=== PATIENT | female | born 1955 | race Caucasian/White ===

== ENCOUNTER 2023-02-13 00:11 | Emergency (ER) | payer MEDICARE, SELFPAY ==
[2023-02-13] VITALS (26 sets, daily range): BP systolic 128–165; BP diastolic 69–112; PULSE 76–94; RESP 9–37; TEMP 36.7; O2SAT 89–93; BMI 47.0
--- NOTE | 2023-02-13 00:38 | XR_ITS ---
The [address] [address] Patient Name: ALICIA GONZALEZ MRN: [id number] date: 1955 Sex: F Assigned Patient Location: ER Current Patient Location: ER Accession/Order Number: [id number] Exam Date: 02/13/2023 00:45 Report Date: 02/13/2023 01:18 At the request of: GURWINDER MARTINEZ Procedure: XR chest 1V EXAMINATION:XR chest 1V INDICATION:chest pain COMPARISON:11/29/2021 TECHNIQUE:A single frontal view of the chest is submitted. FINDINGS: The cardiomediastinal silhouette is mildly enlarged but stable. The pulmonary vascularity is within normal limits. The lungs are clear based on chest radiography. There is no costophrenic angle blunting. XR/XR chest 1V IMPRESSION: Stable cardiac enlargement. Otherwise unremarkable plain film examination of the chest. Electronically authenticated by: ALIX VILLEGAS Date: 02/13/2023 01:18
--- NOTE | 2023-02-13 00:38 | ECG_ITS ---
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
--- NOTE | 2023-02-13 00:39 | ED.CHESTPAI1 ---
HPI - Chest Pain General Chief Complaint: Chest Pain Stated Complaint: CHEST PAIN Time Seen by Provider: 02/13/23 00:34 Source: patient Mode of arrival: Wheelchair Limitations: no limitations History of Present Illness HPI narrative: presents complaining of chest pain. States it started around 5pm and gradually increased. Pain is substernal. No nausea or abdominal pain. States she had a heart cath earlier this year that was normal MD complaint: Reports chest pain Related Data Home Medications Medication Instructions Recorded Confirmed aspirin 81 mg chewable tablet 1 tab PO DAILY 02/13/23 02/13/23 atorvastatin 40 mg tablet 40 mg PO DAILY 02/13/23 02/13/23 carvedilol 6.25 mg tablet 6.25 mg PO Q12H 02/13/23 02/13/23 furosemide 20 mg tablet 20 mg PO DAILY 02/13/23 02/13/23 hydrocodone 5 mg-acetaminophen 325 1 tab PO Q8H 02/13/23 02/13/23 mg tablet lisinopril 5 mg tablet 5 mg PO DAILY 02/13/23 02/13/23 spironolactone 25 mg tablet 25 mg PO DAILY 02/13/23 02/13/23 Allergies Allergy/AdvReac Type Severity Reaction Status Date / Time No Known Drug Allergies Allergy Verified 02/13/23 00:28 Review of Systems ROS Status of ROS 10 or more systems reviewed and unremarkable except as noted in history and below [facility] Social History Smoking status: Never smoker Exam Constitutional Vital Signs, click to edit/add: Last Vital Signs Temp 98.0 F 02/13/23 00:21 Pulse 88 02/13/23 00:21 Resp 16 02/13/23 00:21 BP 158/99 H 02/13/23 00:21 Pulse Ox 93 L 02/13/23 00:21 O2 Del Method Room Air 02/13/23 00:21 Common normals: no apparent distress, oriented x3, no limitations, healthy appearing and well nourished Eye Common normals: EOMs intact bilaterally and conjunctivae normal Chest Common normals: inspection of chest normal and palpation of chest normal Respiratory Common normals: normal respiratory effort, no retractions, no use of accessory muscles and clear to auscultation bilaterally Cardio Common normals: regular rate, regular rhythm, S1 normal heart sound and S2 normal heart sound GI Common normals: Normal to inspection, nondistended, normoactive bowel sounds present, soft to palpation and non-tender Extremity Common normals: normal to inspection and full ROM Neuro Common normals: oriented x3, CN's II-XII intact bilaterally, moves all extremities, no focal motor deficits and no sensory deficits noted Psych Appearance: grossly normal Course Vital Signs Vital signs: Vital Signs Temperature 98.0 F 02/13/23 00:21 Pulse Rate 88 02/13/23 00:21 Respiratory Rate 16 02/13/23 00:21 Blood Pressure 158/99 H 02/13/23 00:21 Pulse Oximetry 93 L 02/13/23 00:21 Oxygen Delivery Method Room Air 02/13/23 00:21 Temperature 98.0 F 02/13/23 00:21 Pulse Rate 88 02/13/23 00:21 Respiratory Rate 16 02/13/23 00:21 Blood Pressure 158/99 H 02/13/23 00:21 Pulse Oximetry 93 L 02/13/23 00:21 Oxygen Delivery Method Room Air 02/13/23 00:21 MDM - Chest Pain MDM Narrative Medical decision making narrative: presents complaining of chest pain. No associated symptoms. Did not want anything for the pain and it resolved spontaneously. Did have a normal heart cath earlier this year. EKG neg. Serial troponins neg. 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 Lab Data Labs: Lab Results 02/13/23 02/13/23 Range/Units 00:30 03:19 WBC 11.9 H (4.0-11.0) 10^3/uL RBC 4.26 (4.20-5.40) 10^6/uL Hgb 12.6 (12.0-16.0) g/dL Hct 41.6 (36.0-48.0) % MCV 97.7 (81.0-99.0) fL MCH 29.6 (26.7-34.0) pg MCHC 30.3 (29.9-35.2) g/dL RDW 12.6 (11.0-15.0) % Plt Count 323 (150-450) 10^3/uL MPV 10.5 (9.5-13.5) fL Neut % (Auto) 73.5 (43.0-75.0) % Lymph % (Auto) 16.1 L (20.5-60.0) % [place] % (Auto) 6.9 (1.7-12.0) % Eos % (Auto) 2.4 (0.9-7.0) % Baso % (Auto) 0.8 (0.2-2.0) % Neut # (Auto) 8.7 H (1.4-6.5) 10^3/uL Lymph # (Auto) 1.9 (1.2-3.8) 10^3/uL [place] # (Auto) 0.8 (0.3-0.8) 10^3/uL Eos # (Auto) 0.3 (0.0-0.7) 10^3/uL Baso # (Auto) 0.1 (0.0-0.1) 10^3/uL Abs Immat Gran (auto) 0.04 H (0.00-0.03) 10^3/uL Imm/Tot Granulo (auto) 0.3 (0.0-0.5) % D-Dimer 0.33 (<=0.59) mg/L FEU Sodium 140 (136-145) mmol/L Potassium 3.9 (3.5-5.1) mmol/L Chloride 102 (98-107) mmol/L Carbon Dioxide 31.1 (21.0-32.0) mmol/L Anion Gap 10.8 BUN 16.0 (7.0-18.0) mg/dL Creatinine 1.18 H (0.55-1.02) mg/dL Est GFR ( Amer) 55 L (>=60) Est GFR (Non-Af Amer) 45 L (>=60) BUN/Creatinine Ratio 13.6 Glucose 119 H (74-106) mg/dL Calcium 9.1 (8.5-10.1) mg/dL Total Bilirubin 0.6 (0.2-1.0) mg/dL Direct Bilirubin 0.1 (0.0-0.2) mg/dL AST 16 (15-37) U/L ALT 17 (14-59) U/L Alkaline Phosphatase 112 (46-116) U/L Troponin I High Sens 7.2 8.5 (4.0-51.3) pg/mL Total Protein 7.8 (6.4-8.2) g/dL Albumin 3.1 L (3.4-5.0) g/dL Globulin 4.7 g/dL Albumin/Globulin Ratio 0.7 Lipase 18.0 (16.0-77.0) U/L Discharge Plan Discharge Chief Complaint: Chest Pain Clinical Impression: Atypical chest pain Patient Disposition: Home, Self-Care Condition: Good Mode of Transportation: Private Vehicle Prescriptions / Home Meds: No Action atorvastatin 40 mg tablet 40 mg PO DAILY carvedilol 6.25 mg tablet 6.25 mg PO Q12H spironolactone 25 mg tablet 25 mg PO DAILY aspirin 81 mg tablet,chewable 1 tab PO DAILY lisinopril 5 mg tablet 5 mg PO DAILY furosemide 20 mg tablet 20 mg PO DAILY hydrocodone-acetaminophen 5-325 mg tablet 1 tab PO Q8H Instructions: Chest Pain (ED) Additional Instructions: Follow up with cardiology on Tuesday. Return to the ED is symptoms change or worsen. Stand Alone Forms: Portal Instructions Referrals: Fco Kulkarni MD [Primary Care Provider] - 1 week
[2023-02-13 00:54] LABS: Basophils Absolute Auto 0.1 10^3/uL (0.0-0.1); Basophils Percent Auto 0.8 % (0.2-2.0); Eosinophils Absolute Auto 0.3 10^3/uL (0.0-0.7); Eosinophils Percent Auto 2.4 % (0.9-7.0); Hematocrit 41.6 % (36.0-48.0); Hemoglobin 12.6 g/dL (12.0-16.0); Immature Granulocytes Abs Auto 0.04 10^3/uL (0.00-0.03); Immature Granulocytes Pct Auto 0.3 % (0.0-0.5); Lymphocytes Absolute Auto 1.9 10^3/uL (1.2-3.8); Lymphocytes Percent Auto 16.1 % (20.5-60.0); Mean Corpuscular HGB Conc 30.3 g/dL (29.9-35.2); Mean Corpuscular Hemoglobin 29.6 pg (26.7-34.0); Mean Corpuscular Volume 97.7 fL (81.0-99.0); Mean Platelet Volume 10.5 fL (9.5-13.5); Monocytes Absolute Auto 0.8 10^3/uL (0.3-0.8); Monocytes Percent Auto 6.9 % (1.7-12.0); Neutrophils Absolute Auto 8.7 10^3/uL (1.4-6.5); Neutrophils Percent Auto 73.5 % (43.0-75.0); Platelet Count 323 10^3/uL (150-450); Red Blood Count 4.26 10^6/uL (4.20-5.40); Red Cell Distribution Width 12.6 % (11.0-15.0); White Blood Count 11.9 10^3/uL (4.0-11.0)
[2023-02-13 01:13] LABS: Anion Gap 10.8; BUN Creatinine Ratio 13.6; Calcium 9.1 mg/dL (8.5-10.1); Carbon Dioxide 31.1 mmol/L (21.0-32.0); Chloride 102 mmol/L (98-107); Estimated GFR (African America 55 (>=60); Estimated GFR (Non-African Ame 45 (>=60); Glucose 119 mg/dL (74-106); Potassium 3.9 mmol/L (3.5-5.1); Sodium 140 mmol/L (136-145)
[2023-02-13 01:16] LABS: Troponin I High Sensitivity 7.2 pg/mL (4.0-51.3)
[2023-02-13 01:20] LABS: Alanine Aminotransferase 17 U/L (14-59); Albumin Globulin Ratio 0.7; Albumin Level 3.1 g/dL (3.4-5.0); Alkaline Phosphatase 112 U/L (46-116); Aspartate Amino Transferase 16 U/L (15-37); Bilirubin Direct 0.1 mg/dL (0.0-0.2); Bilirubin Total 0.6 mg/dL (0.2-1.0); Globulin 4.7 g/dL; Total Protein 7.8 g/dL (6.4-8.2)
[2023-02-13 01:22] LABS: D Dimer 0.33 mg/L FEU (<=0.59)
[2023-02-13 03:43] LABS: Troponin I High Sensitivity 8.5 pg/mL (4.0-51.3)
== END 2023-02-13 04:06 | disposition home or self-care (01) ==
PROVIDERS: Emergency Provider Internal Medicine; PCP Family Medicine
DX: R07.89 Other chest pain (principal); Z79.82 Long term (current) use of aspirin; Z79.899 Other long term (current) drug therapy
CPT/HCPCS: 36415; 71045; 80048; 80076; 83690; 84484; 85025; 85378; 93005; 99285

== ENCOUNTER 2024-03-15 13:01 | Outpatient (OUT) | payer MEDICARE, SELFPAY ==
--- NOTE | 2024-03-15 13:20 | XR_ITS ---
The [address] [address] Patient Name: ALICIA GONZALEZ MRN: [id number] date: 1955 Sex: F Assigned Patient Location: [facility] Current Patient Location: [facility] Accession/Order Number: [id number] Exam Date: 03/15/2024 13:25 Report Date: 03/15/2024 13:49 At the request of: ALIX DE ANDA Procedure: XR chest 2V EXAMINATION: XR chest 2V HISTORY: Upper Respiratory Tract Infection , Cough, Wheeze COMPARISON: All TECHNIQUE: PA and lateral FINDINGS: LUNGS: No significant pulmonary parenchymal abnormalities. VASCULATURE: No increased pulmonary vasculature. PLEURA: No pneumothorax, effusion, or pleural thickening. Stable elevation the right hemidiaphragm CARDIAC: No cardiomegaly or cardiac silhouette abnormality. MEDIASTINUM: No visible mass or adenopathy. BONES: No fracture or visible bone lesion. OTHER: Negative. XR/XR chest 2V IMPRESSION: No acute cardiopulmonary process Electronically authenticated by: BEN GONZALEZ Date: 03/15/2024 13:49
== END 2024-03-15 13:02 | disposition home or self-care (01) ==
PROVIDERS: PCP Family Medicine; Visit Provider Nurse Practitioner
DX: J06.9 Acute upper respiratory infection, unspecified (principal)
CPT/HCPCS: 71046